=== PATIENT | female | born 1980 | race Caucasian/White ===

== ENCOUNTER 2017-11-21 13:20 | Emergency (ER) | payer SELFPAY ==
[~2017-11-21] VITALS: Ht 172.7 cm; Wt 79.4 kg
[2017-11-21 13:30] VITALS: BP 123/84; PULSE 85; TEMP 98.2
[2017-11-21] MEDS ORDERED: FLEXERIL 1010 MG/TAB PO (14:57)
== END 2017-11-21 14:58 | disposition home or self-care (01) ==
LOC: COL.ER 13:20
DX: S39.012A Strain of muscle, fascia and tendon of lower back, initial encounter (principal); F17.210 Nicotine dependence, cigarettes, uncomplicated; X50.0XXA Overexertion from strenuous movement or load, initial encounter
CPT/HCPCS: J2360

== ENCOUNTER 2017-12-03 14:25 | Emergency (ER) | payer SELFPAY ==
[~2017-12-03] VITALS: Ht 172.7 cm; Wt 79.6 kg
[~2017-12-03 14:25] MED LIST: FLEXERIL 1010 MG/TAB PO
[2017-12-03 14:33] VITALS: BP 136/91; PULSE 78; TEMP 98.5
[2017-12-03] MEDS ORDERED: CLEOCIN HC150 MG/CAP PO (14:53)
[2017-12-03] MEDS ORDERED: NORCO 325 MG-51 TAB PO (14:53)
== END 2017-12-03 15:00 | disposition home or self-care (01) ==
LOC: COL.ER 14:25
DX: K02.9 Dental caries, unspecified (principal); F17.210 Nicotine dependence, cigarettes, uncomplicated; L03.211 Cellulitis of face

== ENCOUNTER → 2018-01-10 | Outpatient (CLI) | payer SELFPAY ==
[~2018-01-10] MED LIST changes: +CLEOCIN HC150 MG/CAP PO; +NORCO 325 MG-51 TAB PO
== END ==
LOC: COL.RAD 16:08
DX: M54.5 Low back pain (principal)

== ENCOUNTER 2018-04-10 20:20 | Emergency (ER) | payer SELFPAY ==
[~2018-04-10] VITALS: Ht 172.7 cm; Wt 75.0 kg
[2018-04-10 20:28] VITALS: TEMP 98.7
[2018-04-10] MEDS ORDERED: FLEXERIL 1010 MG/TAB PO (21:18)
[2018-04-10] MEDS ORDERED: TESSALON P100 MG/CAP PO (21:30)
[2018-04-10] MEDS ORDERED: ZITHROMAX 250M250 MG PO (21:30)
[2018-04-10 21:50] VITALS: BP 124/78; PULSE 78
== END 2018-04-10 21:51 | disposition home or self-care (01) ==
LOC: COL.ER 20:20
DX: J20.9 Acute bronchitis, unspecified (principal); F17.210 Nicotine dependence, cigarettes, uncomplicated; F12.90 Cannabis use, unspecified, uncomplicated

== ENCOUNTER 2018-05-03 14:32 | Emergency (ER) | payer SELFPAY ==
[~2018-05-03] VITALS: Ht 172.7 cm; Wt 74.5 kg
[~2018-05-03 14:32] MED LIST changes: +TESSALON P100 MG/CAP PO; +ZITHROMAX 250M250 MG PO
[2018-05-03 14:51] VITALS: TEMP 98.7
[2018-05-03] MEDS ORDERED: NORCO 325 MG-51 TAB PO (17:12)
[2018-05-03] MEDS ORDERED: ZITHROMAX Z PA250 MG PO (17:12)
[2018-05-03] MEDS ORDERED: MEDROL 4MG DOSPA4 MG PO (17:12)
[2018-05-03 17:37] VITALS: BP 119/87; PULSE 89
== END 2018-05-03 17:51 | disposition home or self-care (01) ==
LOC: COL.ER 14:32
DX: J40 Bronchitis, not specified as acute or chronic (principal); R07.81 Pleurodynia; F17.210 Nicotine dependence, cigarettes, uncomplicated; Z77.098 Contact with and (suspected) exposure to other hazardous, chiefly nonmedicinal, chemicals; Z98.51 Tubal ligation status
CPT/HCPCS: J1100

== ENCOUNTER → 2018-08-10 | Outpatient (CLI) | payer SELFPAY ==
[~2018-08-10] MED LIST changes: +MEDROL 4MG DOSPA4 MG PO; +ZITHROMAX Z PA250 MG PO
== END ==
LOC: COL.RAD 14:10
DX: M51.26 Other intervertebral disc displacement, lumbar region (principal)

== ENCOUNTER → 2018-09-22 | Outpatient (CLI) | payer SELFPAY | LOC: COL.RAD 07:52 | DX: M54.2 Cervicalgia (principal); M54.5 Low back pain; R53.1 Weakness ==

== ENCOUNTER → 2018-10-04 | Outpatient (CLI) | payer SELFPAY ==
[2018-10-04 14:19] LABS: HEMATOCRIT 40.9 % (37.0-47.0); HEMOGLOBIN 13.1 g/dl (12.5-16.0); MEAN CELL VOLUME 90 fl (80.0-100.0); MEAN CORPUSCULAR HEMOGLOBIN 29 pg (27.0-31.0); MEAN CORPUSCULAR HGB CONC 32 g/dl (33.0-37.0); MEAN PLATELET VOLUME 10.8 fl (7.4-10.4); PLATELET COUNT 230 K/mm3 (130-400); RED BLOOD COUNT 4.55 M/mm3 (4.10-5.30); REDCELL DISTRIBUTION WIDTH-CV 14.5 % (11.5-14.5)
[2018-10-04 14:29] LABS: ALANINE AMINOTRANSFERASE 6 U/L (9-52); ALBUMIN 4.5 gm/dL (3.5-5.0); ALKALINE PHOSPHATASE 64 U/L (50-136); ANION GAP 9 mmol/L (7-16); AST,SGOT 18 U/L (15-37); BILIRUBIN,TOTAL 0.3 mg/dL (0.0-1.0); BLOOD UREA NITROGEN 10 mg/dL (7-17); CALCIUM 9.5 mg/dL (8.4-10.2); CARBON DIOXIDE 26 mmol/L (22-30); CHLORIDE 106 mmol/L (98-107); CREATININE, serum 0.78 (0.52-1.25); GLUCOSE 97 mg/dL (74-106); POTASSIUM 4.5 mmol/L (3.4-5.0); SODIUM 141 mmol/L (137-145); TOTAL PROTEIN 7.8 gm/dL (6.4-8.2)
[2018-10-04 14:51] LABS: C-REACTIVE PROTEIN < 0.5 mg/dL (0.0-0.9)
[2018-10-04 15:02] LABS: ERYTHROCYTE SEDIMENTATION RATE 2 mm/hr (0-20)
[2018-10-04 22:00] LABS: RHEUMATOID FACTOR-SCREEN <15 IU/mL (0-29)
== END ==
LOC: COL.LAB 13:52
PROVIDERS: Internal Medicine
DX: M54.9 Dorsalgia, unspecified (principal)

== ENCOUNTER 2018-12-06 18:24 | Emergency (ER) | payer SELFPAY ==
[~2018-12-06] VITALS: Ht 172.7 cm; Wt 79.0 kg
[2018-12-06 18:28] VITALS: BP 117/76; PULSE 79; TEMP 99
== END 2018-12-06 21:33 | disposition left against medical advice (07) ==
LOC: COL.ER 18:24
DX: S00.31XA Abrasion of nose, initial encounter (principal); Z53.21 Procedure and treatment not carried out due to patient leaving prior to being seen by health care provider

== ENCOUNTER 2019-03-31 14:26 | Emergency (ER) | payer OTHER ==
[~2019-03-31] VITALS: Ht 170.2 cm; Wt 85.5 kg
[2019-03-31 14:34] VITALS: BP 138/89; TEMP 98.9
[2019-03-31] MEDS ORDERED: ELAVIL100 MG PO (15:28)
[2019-03-31 16:17] VITALS: PULSE 89
== END 2019-03-31 16:20 | disposition home or self-care (01) ==
LOC: COL.ER 14:26
DX: S01.111A Laceration without foreign body of right eyelid and periocular area, initial encounter (principal); S50.12XA Contusion of left forearm, initial encounter; Z23 Encounter for immunization; Y04.8XXA Assault by other bodily force, initial encounter; Y92.009 Unspecified place in unspecified non-institutional (private) residence as the place of occurrence of the external cause; Y07.499 Other family member, perpetrator of maltreatment and neglect

== ENCOUNTER 2019-04-07 16:44 | Emergency (ER) | payer OTHER ==
[2019-04-07 16:47] VITALS: BP 138/72; PULSE 89; TEMP 97.9
== END 2019-04-07 16:51 | disposition home or self-care (01) ==
LOC: COL.ER 16:44
DX: Z48.02 Encounter for removal of sutures (principal)

== ENCOUNTER → 2019-04-07 | Outpatient (CLI) | payer SELFPAY ==
[~2019-04-07] MED LIST changes: +ELAVIL100 MG PO
== END ==
LOC: COL.RAD 08-30 09:00 → COL.ER 16:43
DX: Z48.02 Encounter for removal of sutures (principal)

== ENCOUNTER 2019-06-04 17:26 | Emergency (ER) | payer SELFPAY ==
[~2019-06-04] VITALS: Ht 172.7 cm; Wt 84.5 kg
[2019-06-04] MEDS ORDERED: LYRICA 75MG CAP75 MG PO (19:09)
[2019-06-04] MEDS ORDERED: DOXYCYCLINE 10100 MG PO (21:02)
[2019-06-04] MEDS ORDERED: PREDNISONE20 MG PO (21:02)
[2019-06-04 21:11] VITALS: BP 126/82; PULSE 78; TEMP 97.6
== END 2019-06-04 21:12 | disposition home or self-care (01) ==
LOC: COL.ER 17:26
DX: J20.9 Acute bronchitis, unspecified (principal); J11.1 Influenza due to unidentified influenza virus with other respiratory manifestations; F17.210 Nicotine dependence, cigarettes, uncomplicated; Z90.49 Acquired absence of other specified parts of digestive tract; Z98.51 Tubal ligation status; Z98.890 Other specified postprocedural states
CPT/HCPCS: J7512

== ENCOUNTER → 2020-02-08 | Outpatient (CLI) | payer SELFPAY ==
[~2020-02-08] MED LIST changes: +DOXYCYCLINE 10100 MG PO; +LYRICA 75MG CAP75 MG PO; +PREDNISONE20 MG PO
== END ==
LOC: COL.RAD 09:23
DX: M25.512 Pain in left shoulder (principal)

== ENCOUNTER 2020-04-05 16:40 | Emergency (ER) | payer SELFPAY ==
[~2020-04-05] VITALS: Ht 172.7 cm; Wt 84.1 kg
[2020-04-05 17:09] VITALS: TEMP 97.4
[2020-04-05] MEDS ORDERED: DOXYCYCLINE 10100 MG PO (19:40)
[2020-04-05 19:56] VITALS: BP 130/70; PULSE 70
== END 2020-04-05 19:50 | disposition home or self-care (01) ==
LOC: COL.ER 16:40
DX: N76.4 Abscess of vulva (principal); F17.210 Nicotine dependence, cigarettes, uncomplicated

== ENCOUNTER → 2020-04-22 | Outpatient (CLI) | payer SELFPAY | LOC: COL.RAD 10:30 | DX: G93.5 Compression of brain (principal); M67.814 Other specified disorders of tendon, left shoulder ==